=== PATIENT | male | born 1980 | race Caucasian/White ===

== ENCOUNTER 2025-05-02 18:25 | Inpatient (IN) | payer BC ==
[2025-05-02] MEDS ORDERED: Electrolyte Replacement Protocol 1 EACH FS SCH (20:00)
[2025-05-02] MEDS: HYDROcodone/Acetaminophen 5/325 mg Tablet PO PRN (21:14)
[2025-05-02] MEDS: Ciprofloxacin Lactate/D5W 400 MG in Premix 1 BAG IVPB SCH (21:14)
[2025-05-03 06:54] LABS: #Basophils 0.03 10x3/uL (0.0-0.2); #Eosinophils 0.03 10x3/uL (0.0-0.7); #Monocytes 0.67 10x3/uL (0.11-0.59); #Neutrophils 8.75 10x3/uL (1.40-6.50); %Basophils 0.3 % (0.0-1.0); %Eosinophils 0.3 % (0.0-10.0); %Lymphocytes 6.0 % (21.0-51.0); %Monocytes 6.6 % (0.0-10.0); %Neutrophils 86.4 % (42.0-75.0); Hematocrit 33.0 % (42.0-52.0); Hemoglobin 10.1 g/dL (14.0-18.0); Mean Corpuscular Hemoglobin 22.3 pg (27.0-31.0); Mean Corpuscular Volume 72.8 fL (78.0-98.0); Platelet Count 399 10x3/uL (130-400); Red Blood Cell (RBC) Count 4.53 mill/uL (4.70-6.10); White Blood Cell (WBC) Count 10.13 10x3/uL (4.8-10.8)
[2025-05-03 07:03] LABS: ALT (SGPT) 9 U/L (Less than 45); AST (SGOT) 12 U/L (11-34); Albumin 2.3 g/dL (3.1-4.5); Alkaline Phosphatase 66 U/L (40-110); Anion Gap 10 mmol/L (10-20); BUN (Urea Nitrogen) 12 mg/dL (8.9-20.6); Bilirubin, Total 0.9 mg/dL (0.3-1.2); Calc. Creatinine Clearance 0 mL/min (70-130); Calcium 8.5 mg/dL (7.8-10.44); Carbon Dioxide 26 mmol/L (22-29); Chloride 102 mmol/L (98-107); Globulin 2.9 g/dL (2.4-3.5); Glucose 93 mg/dL (70-105); Potassium 4.2 mmol/L (3.5-5.1); Sodium 134 mmol/L (136-145)
[2025-05-03 07:26] LABS: Burr Cells SLIGHT = 2-5 cells HPF (0-1); Microcytosis SLIGHT = 6-15 cells HPF (0-5); Platelet Adequacy Comment Platelets Normal; Polychromasia MARKED = >4 cells HPF (0-2)
[2025-05-03] MEDS: Acetaminophen 325 MG TAB PO PRN (09:07)
[2025-05-03] MEDS: GoLYTELY 4,000 ml Bottle PO SCH (13:36)
[2025-05-03] MEDS: Calcium Carbonate 500 MG ChewTAB PO PRN (13:44)
[2025-05-03 14:04] LABS: Campy jejuni + coli by PCR Negative (Negative); STEC Shiga Toxin 1+2 Negative (Negative); Salmonella spp. by PCR Negative (Negative); Shigella spp + EIEC by PCR Negative (Negative)
[2025-05-03 16:20] LABS: Ref Lab Test Ordered fecal calprotectin; Reference Lab Name LABCORP
[2025-05-03] MEDS: Ondansetron PF 4 MG/2 ML Vial IVP PRN (17:34)
[2025-05-03] MEDS ORDERED: GoLYTELY 4,000 ml Bottle PO PRN (19:16)
[2025-05-04 05:36] LABS: Anion Gap 14 mmol/L (10-20); BUN (Urea Nitrogen) 12 mg/dL (8.9-20.6); Calc. Creatinine Clearance 0 mL/min (70-130); Calcium 8.7 mg/dL (7.8-10.44); Carbon Dioxide 26 mmol/L (22-29); Chloride 98 mmol/L (98-107); Glucose 102 mg/dL (70-105); Iron 7 ug/dL (65-175); Iron Binding Capacity, Total 171 mcg/dL (261-462); Potassium 3.9 mmol/L (3.5-5.1); Sodium 134 mmol/L (136-145)
[2025-05-04 06:00] LABS: #Basophils Less than 0.03 10x3/uL (0.0-0.2); #Eosinophils 0.04 10x3/uL (0.0-0.7); #Monocytes 0.71 10x3/uL (0.11-0.59); #Neutrophils 10.00 10x3/uL (1.40-6.50); %Basophils 0.1 % (0.0-1.0); %Eosinophils 0.4 % (0.0-10.0); %Lymphocytes 4.2 % (21.0-51.0); %Monocytes 6.3 % (0.0-10.0); %Neutrophils 88.5 % (42.0-75.0); Hematocrit 35.5 % (42.0-52.0); Hemoglobin 11.0 g/dL (14.0-18.0); Mean Corpuscular Hemoglobin 22.2 pg (27.0-31.0); Mean Corpuscular Volume 71.7 fL (78.0-98.0); Platelet Count 460 10x3/uL (130-400); Red Blood Cell (RBC) Count 4.95 mill/uL (4.70-6.10); White Blood Cell (WBC) Count 11.29 10x3/uL (4.8-10.8)
[2025-05-04] MEDS ORDERED: PROPOFOL 40 ML ONE (10:17)
[2025-05-04] MEDS ORDERED: PROPOFOL 20 ML ONE ×2 (10:18→10:52)
[2025-05-04] MEDS ORDERED: PHENYLEPHRINE-NS 100 MCG/ML 10 ML SYRINGE ONE (11:00)
[2025-05-05 08:43] VITALS: BP 116/70; TEMP 98.7
== END 2025-05-05 18:06 | disposition home or self-care (01) | DRG 385 ==
LOC: T4-B 19:06
PROVIDERS: ADMIT Internal Medicine; ATTEND Internal Medicine
PROC: 0DBK8ZX Excision of Ascending Colon, Via Natural or Artificial Opening Endoscopic, Diagnostic (ICD-10-PCS; principal; 2025-05-04)
PROC: 0DBL8ZX Excision of Transverse Colon, Via Natural or Artificial Opening Endoscopic, Diagnostic (ICD-10-PCS; 2025-05-04)
PROC: 0DBN8ZX Excision of Sigmoid Colon, Via Natural or Artificial Opening Endoscopic, Diagnostic (ICD-10-PCS; 2025-05-04)
PROC: 0DBP8ZX Excision of Rectum, Via Natural or Artificial Opening Endoscopic, Diagnostic (ICD-10-PCS; 2025-05-04)
PROC: 0DBB8ZX Excision of Ileum, Via Natural or Artificial Opening Endoscopic, Diagnostic (ICD-10-PCS; 2025-05-04)
PROC: 0DBM8ZX Excision of Descending Colon, Via Natural or Artificial Opening Endoscopic, Diagnostic (ICD-10-PCS; 2025-05-04)
PROC: 0DBH8ZX Excision of Cecum, Via Natural or Artificial Opening Endoscopic, Diagnostic (ICD-10-PCS; 2025-05-04)
PROC: 3E033XZ Introduction of Vasopressor into Peripheral Vein, Percutaneous Approach (ICD-10-PCS; 2025-05-04)
DX: K50.814 Crohn's disease of both small and large intestine with abscess (principal); K63.1 Perforation of intestine (nontraumatic); K56.699 Other intestinal obstruction unspecified as to partial versus complete obstruction; K57.30 Diverticulosis of large intestine without perforation or abscess without bleeding; K64.4 Residual hemorrhoidal skin tags; D50.9 Iron deficiency anemia, unspecified; K64.8 Other hemorrhoids
CPT/HCPCS: 36415; 74183; 80048; 80053; 82728; 83540; 83550; 85025; 86141; 87324; 87449; 87505; 88305; J0744; J2270; J2405; J2704; J7120; Q0162